=== PATIENT | female | born 1940 | race Caucasian/White ===

== ENCOUNTER 2017-07-12 01:47 | Day surgery (SDC) | payer MEDICARE ==
[2015-10-18 12:51] VITALS: Ht 157.5 cm
[~2017-07-12 01:47] MED LIST: AMOX-559 PO; ASPI-1017 PO; ASPI81TA94 PO; ATOR10TA24 PO; CA C1TAB10; DIPH-740 PO; DOCU-202 PO; DOCU-416 PO; ESCI5TAB10 PO; GLUC1TAB13 PO; GOLYTE PO; LEVO-85 PO; LEVO50TA86; LEVO75TA73 PO; LINA145C PO; LOR5/325 PO; LORA-1456 PO; MAGN250T34 PO; METH479P3 PO; NAPR220C11 PO; NAPR220T86 PO; OMEG500C7 PO; ONDA4TAB PO; ONDA4TAB97 PO; PANT40TA65 PO; POLY17PO25 PO; PRED20TA6 PO; PROM-110 PO; PROM12.556 PO; SULF-198 PO; SULF1TAB24 PO
[2017-07-12] MEDS ORDERED: OPHTHALMIC PROCEDURE 2 OS PRN ×2 (14:50)
[2017-07-12] MEDS ORDERED: OPHTHALMIC PROCEDURE 1 OS PRN (14:50)
[2017-07-12 15:10] VITALS: BP 159/82
[2017-07-12] MEDS ORDERED: MIDAZOLAM 2 MG/2 ML VIAL IVP ONE (15:30)
[2017-07-12] MEDS ORDERED: LIDOCAINE/SOD BICARB 8.4% SYR ID ONE (15:30)
[2017-07-12] MEDS ORDERED: NORMOSOL R SOLN(*) 1000 ML BAG 1,000 ML IV PRN (15:30)
[2017-07-12] MEDS ORDERED: acetaZOLAMIDE 500 MG CAPCR PO ONE (16:50)
[2017-07-12] MEDS ORDERED: TOBRAMYCIN 0.3% OP SOLN 5 ML OS ONE (17:28)
[2017-07-12 17:44] VITALS: BP 156/80
--- NOTE | 2017-07-12 19:33 | FOSTER LEFT EYE CATARACT ---
EVENT DATE: July 12, 2017 SURGEON: Edward Knight MD ANESTHESIOLOGIST: None. ANESTHESIA: Topical. PREOPERATIVE DIAGNOSIS Cataract, left eye. POSTOPERATIVE DIAGNOSIS Cataract, left eye. PROCEDURE Phacoemulsification of cataractous lens with implantation of an intraocular lens , left eye. DESCRIPTION OF PROCEDURE The risks and benefits and alternatives were carefully discussed with the patient, and preoperative consent was obtained. The patient was brought to the operating room after receiving topical anesthetic. The patient was prepped and draped using sterile technique in the usual manner. A stab incision was made, and the chamber was inflated with preservative-free lidocaine. DuoVisc was injected to inflate the chamber. A 2.2 mm blade was used to enter the anterior chamber. Utrata forceps were used to tear a circular capsulorrhexis. BSS was used to hydrodissect the nucleus. Phaco tip was introduced, and the nucleus was chopped into four quadrants. Each quadrant was removed. The I/A tip was used to remove the cortex. The bag was inflated with ProVisc. The intraocular lens was injected into the capsular bag. The I/A tip was used to remove the ProVisc. The wound was found to be watertight. Vigamox, Nevanac, and Maxitrol ointment were placed in the patient's eye. The patient's eye was patched, and the patient was taken to the recovery room in stable condition. The patient was examined in the recovery room and found to be stable prior to release from the hospital. RICK
== END 2017-07-12 18:15 | disposition home or self-care (01) ==
LOC: OR 01:47
PROVIDERS: ATTEND Ophthalmology
DX: H25.12 Age-related nuclear cataract, left eye (principal)
CPT/HCPCS: 66984; A9270; V2632

== ENCOUNTER 2017-09-06 00:47 | Day surgery (SDC) | payer MEDICARE ==
[2015-10-18 12:51] VITALS: Ht 157.5 cm; Wt 82.6 kg
[~2017-09-06] VITALS: Ht 157.5 cm; Wt 82.6 kg
[~2017-09-06 00:47] MED LIST changes: +ACET-1966 PO; +DIPH-464 PO
[2017-09-06] MEDS ORDERED: OPHTHALMIC PROCEDURE 1 OU PRN (06:00)
[2017-09-06] MEDS ORDERED: OPHTHALMIC PROCEDURE 2 OU PRN ×2 (06:00)
[2017-09-06] MEDS ORDERED: acetaZOLAMIDE 500 MG CAPCR PO ONE (06:00)
[2017-09-06 11:58] VITALS: BP 177/74
[2017-09-06] MEDS ORDERED: NORMOSOL R SOLN(*) 1000 ML BAG 1,000 ML IV PRN (12:00)
[2017-09-06] MEDS ORDERED: LIDOCAINE/SOD BICARB 8.4% SYR ID ONE (12:00)
[2017-09-06] MEDS ORDERED: SCOPOLAMINE 1.5 MG PATCH TD ONE (12:25)
[2017-09-06] MEDS ORDERED: PROPOFOL EMUL(*) 10MG/ML 20 ML 20 ML ONE (13:14)
[2017-09-06 13:35] VITALS: BP 129/81
--- NOTE | 2017-09-06 16:00 | FOSTER RIGHT EYE CATARACT ---
EVENT DATE: September 06, 2017 SURGEON: Edward Knight MD ANESTHESIA: Topical. PREOPERATIVE DIAGNOSIS Cataract, right eye. POSTOPERATIVE DIAGNOSIS Cataract, right eye. PROCEDURE Phacoemulsification of cataractous lens with implantation of an intraocular lens , right eye. DESCRIPTION OF PROCEDURE The risks and benefits and alternatives were carefully discussed with the patient, and preoperative consent was obtained. The patient was brought to the operating room after receiving topical anesthetic. The patient was prepped and draped using sterile technique in the usual manner. A stab incision was made, and the chamber was inflated with preservative-free lidocaine. DuoVisc was injected to inflate the chamber. A 2.2 mm blade was used to enter the anterior chamber. Utrata forceps were used to tear a circular capsulorrhexis. BSS was used to hydrodissect the nucleus. Phaco tip was introduced, and the nucleus was chopped into four quadrants. Each quadrant was removed. The I/A tip was used to remove the cortex. The bag was inflated with ProVisc. The intraocular lens was injected into the capsular bag. The I/A tip was used to remove the ProVisc. The wound was found to be watertight. Vigamox, Nevanac, and Maxitrol ointment were placed in the patient's eye. The patient's eye was patched, and the patient was taken to the recovery room in stable condition. The patient was examined in the recovery room and found to be stable prior to release from the hospital. RICK
== END 2017-09-06 13:51 | disposition home or self-care (01) ==
LOC: OR 00:47
PROVIDERS: ATTEND Ophthalmology
DX: H25.811 Combined forms of age-related cataract, right eye (principal)
CPT/HCPCS: 66984; A9270; J2704; V2632

== ENCOUNTER 2017-09-12 10:40 | Emergency (ER) | payer MEDICARE ==
[2015-10-18 12:51] VITALS: Wt 84.4 kg
--- NOTE | 2017-09-12 11:17 | ER Report ---
History and Physical Time Seen By MD: 11:00 Hx. of Stated Complaint: PT GOT A DEPOMEDROL SHOT YESTERDAY, SINCE LAST NIGTH FEELING FLUSHED, TACHYCARDIC, ANXIOUS, SEVERE HEADACHE HPI/ROS CHIEF COMPLAINT: Possible adverse medication reaction HISTORY OF PRESENT ILLNESS: Patient was seen 2 days ago by and had an injection to her right knee with Depo-Medrol. Since the injection she's been experiencing severe headache she is also feeling anxious and jittery. She denies any chest pain or shortness of breath. She was able to sleep last night but again woke up with headache this morning. Reports feeling palpitations and some nausea. Denies any abdominal pain. REVIEW OF SYSTEMS: Respiratory: No cough, no dyspnea. Cardiovascular: No chest pain, no palpitations. Gastrointestinal: No vomiting, no abdominal pain. Musculoskeletal: No back pain. Allergies: Coded Allergies: benzoin (Verified Allergy, Severe, SEVERE RASH, 08/29/17) ciprofloxacin (Verified Adverse Reaction, Mild, Anxiety and eyes itchy, 12/05/14) clavulanic acid (Verified Adverse Reaction, Mild, NAUSEA, 12/05/14) PT REPORTS HAVING TO GO TO THE ER FOR NAUSEA lisinopril (Verified Adverse Reaction, Mild, NAUSEA, 12/05/14) metronidazole (Verified Adverse Reaction, Mild, NAUSEA, 12/05/14) propoxyphene (Verified Adverse Reaction, Mild, NAUSEA, 12/05/14) tobramycin (Verified Adverse Reaction, Mild, NAUSEA, 08/29/17) Uncoded Allergies: DEPOMEDROL (Allergy, Mild, 09/12/17) Home Meds Reported Medications Diphenhydramine Hcl (DIPHENHYDRAMINE HCL) 25 Mg Capsule, 25 MG PO HS, CAPSULE 08/29/17 Acetaminophen (TYLENOL) 325 Mg Tablet, 325 MG PO BID, TAB 08/29/17 Magnesium Oxide (MAGNESIUM) 250 Mg Tablet, 250 MG PO QDAY 07/04/17 Glucosamine Hcl/Chondr Foreman A Na (OSTEO BI-FLEX CAPLET) 1 Each Tablet, 1 EACH PO QDAY 07/04/17 Polyethylene Glycol 3350 (MIRALAX) 17 Gm Powd.pack, 1 DOSE-PACK PO QDAY, PKT 02/10/16 Methylcellulose (CITRUCEL) 479 Gm Powder, 1 TBS PO QDAY 10/17/15 Levothyroxine Sodium (LEVOTHYROXINE SODIUM) 50 Mcg Tablet, 50, #90 12/05/14 Pantoprazole Sodium (PANTOPRAZOLE SODIUM) 40 Mg Tablet.dr, 40 MG PO QDAY, TAB.SR 09/15/13 Atorvastatin Calcium (LIPITOR) 10 Mg Tablet, 1 TAB PO QDAY, TAB TAKE ONE TABLET BY MOUTH ONCE A DAY AT BED TIME 09/10/13 Past Medical/Surgical History Past medical history for arthritis, hypertension, hypothyroidism, gastroesophageal reflux disease. Hx Smoking: No Smoking Status: Never Smoker Exposure to Second Hand Smoke?: No Hx Substance Use Disorder: No Hx Alcohol Use: No Constitutional Vital Sign - Last 24 Hours 09/12/17 09/12/17 09/12/17 09/12/17 10:40 10:46 10:46 10:55 Temp 98.4 Pulse ??? 135 118 Resp 16 B/P (MAP) 177/86 177/86 (116) Pulse Ox 93 93 09/12/17 09/12/17 09/12/17 09/12/17 11:10 11:25 11:34 11:40 Pulse 107 107 101 B/P (MAP) 168/87 (114) Pulse Ox 89 92 91 09/12/17 09/12/17 09/12/17 09/12/17 11:45 11:55 12:00 12:10 Pulse 96 99 B/P (MAP) 164/87 (112) 167/87 (113) Pulse Ox 94 92 09/12/17 09/12/17 09/12/17 09/12/17 12:15 12:25 12:30 12:35 Pulse 84 89 B/P (MAP) 169/84 (112) 158/80 (106) Pulse Ox 92 92 09/12/17 09/12/17 09/12/17 09/12/17 12:45 12:49 12:50 13:00 Pulse 91 B/P (MAP) 162/77 (105) 150/67 (94) Pulse Ox 91 O2 Flow Rate 1.0 09/12/17 09/12/17 09/12/17 09/12/17 13:05 13:15 13:20 13:30 Pulse ??? 80 B/P (MAP) 167/78 (107) 153/88 (109) Pulse Ox 94 5/02/2009/12/17 09/12/17 09/12/17 13:35 13:45 13:50 14:00 Pulse 71 67 B/P (MAP) 147/70 (95) 136/66 (89) Pulse Ox 94 93 09/12/17 09/12/17 09/12/17 09/12/17 14:05 14:15 14:20 14:23 Pulse 62 76 B/P (MAP) 108/54 (72) ???/??? (1665) Pulse Ox 92 93 Physical Exam General Appearance: The patient is alert, has no immediate need for airway protection and no current signs of toxicity. Eyes: Pupils equal and round no injection. Respiratory: Chest is non tender, lungs are clear to auscultation. Cardiac: regular rate and rhythm Gastrointestinal: Abdomen is soft and non tender, no masses, bowel sounds normal. Musculoskeletal: Neck: Neck is supple and non tender. Extremities have full range of motion and are non tender. Skin: No rashes or lesions. Medical Decision Making Data Points Result Diagram: 09/12/17 1118 09/12/17 1118 Laboratory Hematology Test 09/12/17 11:18 Red Blood Count 5.14 M/uL (4.17-5.56) Mean Corpuscular Volume 82.1 fL (80.0-96.0) Mean Corpuscular Hemoglobin 27.7 pg (26.0-33.0) Mean Corpuscular Hemoglobin Concent 33.7 g/dL (32.0-36.0) Red Cell Distribution Width 18.2 % (11.5-14.5) Mean Platelet Volume 7.1 fL (7.2-11.1) Neutrophils (%) (Auto) 92.7 % (39.4-72.5) Lymphocytes (%) (Auto) 3.4 % (17.6-49.6) Monocytes (%) (Auto) 3.6 % (4.1-12.4) Eosinophils (%) (Auto) 0.0 % (0.4-6.7) Basophils (%) (Auto) 0.3 % (0.3-1.4) Nucleated RBC Relative Count (auto) 0.1 /100WBC Neutrophils # (Auto) 15.8 K/uL (2.0-7.4) Lymphocytes # (Auto) 0.6 K/uL (1.3-3.6) Monocytes # (Auto) 0.6 K/uL (0.3-1.0) Eosinophils # (Auto) 0.0 K/uL (0.0-0.5) Basophils # (Auto) 0.1 K/uL (0.0-0.1) Nucleated RBC Absolute Count (auto) 0.01 K/uL Sodium Level 140 mmol/L (137-145) Potassium Level 3.7 mmol/L (3.5-5.0) Chloride Level 106 mmol/L (98-107) Carbon Dioxide Level 21 mmol/L (22-31) Blood Urea Nitrogen 23 mg/dl (7-18) Creatinine 0.70 mg/dl (0.52-1.04) Glomerular Filtration Rate Calc > 60.0 Random Glucose 136 mg/dl (75-110) Calcium Level 9.8 mg/dl (8.4-10.2) Total Bilirubin 0.6 mg/dl (0.2-1.3) Aspartate Amino Transf (AST/SGOT) 23 U/L (0-35) Alanine Aminotransferase (ALT/SGPT) 27 U/L (0-56) Alkaline Phosphatase 93 U/L (0-126) Total Protein 7.5 gm/dl (6.3-8.2) Albumin 4.1 g/dl (3.5-5.0) Chemistry Test 09/12/17 11:18 White Blood Count 17.0 k/uL (4.5-11.0) Red Blood Count 5.14 M/uL (4.17-5.56) Hemoglobin 14.2 g/dL (12.0-16.0) Hematocrit 42.1 % (34.0-47.0) Mean Corpuscular Volume 82.1 fL (80.0-96.0) Mean Corpuscular Hemoglobin 27.7 pg (26.0-33.0) Mean Corpuscular Hemoglobin Concent 33.7 g/dL (32.0-36.0) Red Cell Distribution Width 18.2 % (11.5-14.5) Platelet Count 276 K/uL (150-450) Mean Platelet Volume 7.1 fL (7.2-11.1) Neutrophils (%) (Auto) 92.7 % (39.4-72.5) Lymphocytes (%) (Auto) 3.4 % (17.6-49.6) Monocytes (%) (Auto) 3.6 % (4.1-12.4) Eosinophils (%) (Auto) 0.0 % (0.4-6.7) Basophils (%) (Auto) 0.3 % (0.3-1.4) Nucleated RBC Relative Count (auto) 0.1 /100WBC Neutrophils # (Auto) 15.8 K/uL (2.0-7.4) Lymphocytes # (Auto) 0.6 K/uL (1.3-3.6) Monocytes # (Auto) 0.6 K/uL (0.3-1.0) Eosinophils # (Auto) 0.0 K/uL (0.0-0.5) Basophils # (Auto) 0.1 K/uL (0.0-0.1) Nucleated RBC Absolute Count (auto) 0.01 K/uL Glomerular Filtration Rate Calc > 60.0 Calcium Level 9.8 mg/dl (8.4-10.2) Total Bilirubin 0.6 mg/dl (0.2-1.3) Aspartate Amino Transf (AST/SGOT) 23 U/L (0-35) Alanine Aminotransferase (ALT/SGPT) 27 U/L (0-56) Alkaline Phosphatase 93 U/L (0-126) Total Protein 7.5 gm/dl (6.3-8.2) Albumin 4.1 g/dl (3.5-5.0) EKG/Imaging EKG Interpretation EKG shows sinus tachycardia with ventricular rate of [address] segment or T-wave abnormalities. 09/12/2017 2:18:22 pm Cardec monitor at this time shows improvement in vital signs heart rate now in the normal range at 82 bpm sinus rhythm on the monitor. Monitor Interpretation: Sinus Tachycardia Imaging FACILITY: [facility] PATIENT NAME: Dalia Layton : 1940 MR: [id number] V: [id number] EXAM DATE: ORDERING PHYSICIAN: MELANI DURAN TECHNOLOGIST: Location: [facility] Patient: Dalia Layton : 1940 Visit/Account:[id number] Date of Sevice: 09/12/2017 EXAMINATION: CT head without IV contrast HISTORY: Headache. COMPARISON: Brain MRI from 11/22/2008. TECHNIQUE: Contiguous axial images were obtained from the skull base to the vertex without intravenous contrast. Sagittal and coronal reformatted images are also submitted. One of the following dose optimization techniques was utilized in the performance of this exam: Automated exposure control; adjustment of the mA and/ or kV according to the patient's size; or use of an iterative reconstruction technique. Specific details can be referenced in the facility's radiology CT exam operational policy. FINDINGS: Brain volume: Normal. Ventricles: Normal. Acute ischemic changes: None. Hemorrhage: No acute intracranial hemorrhage. Masses/edema: There is a 1.1 cm fat density lesion in the right posterior fossa , lateral to the brainstem, unchanged. No edema in the adjacent brain. [place]-white: Negative. White matter: Normal. Vessels: Calcified plaque of both carotid siphons. Extra-axial: Negative. Calvarium/scalp: Negative. Skull base/visualized face: Negative. Visualized sinuses/orbits: Previous lens surgery bilaterally. IMPRESSION: 1. No acute hemorrhage or CT evidence of acute infarct. 2. 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 No other intracranial mass lesion. Report Dictated By: Aurora Lang MD at 09/12/2017 1:20 PM Report E-Signed By: Aurora Lang MD at 09/12/2017 1:25 PM WSN:[id number] ED Course/Re-evaluation ED Course 09/12/2017 11:16:45 am patient with possible adverse reaction to Depo-Medrol injection plan at this time will be to check basic lab work. We will give IV fluids and dose of Ativan along with EKG. 09/12/2017 2:17:46 pm headache and upset stomach and resolved. Workup in the emergency department is unremarkable. We'll discharge the patient home at this time. Decision to Disposition Date: September 12, 2017 Decision to Disposition Time: 14:18 Depart Departure Latest Vital Signs Vital Signs Date Time Temp Pulse Resp B/P (MAP) Pulse Ox O2 Delivery O2 Flow Rate FiO2 09/12/17 14:23 ???/??? (1665) 09/12/17 14:20 76 93 09/12/17 12:49 1.0 09/12/17 10:46 98.4 16 Impression: Primary Impression: Adverse drug effect Condition: Improved Disposition: HOME OR SELF-CARE Patient Instructions: Adverse Drug Reaction (ED) Additional Instructions: Take all your prescribed medications as directed. Follow-up with your primary care provider on a routine basis or sooner if your symptoms worsen or persist. Problem Qualifiers Primary Impression: Adverse drug effect Encounter type: initial encounter Qualified Codes: T88.7XXA - Unspecified adverse effect of drug or medicament, initial encounter MELANI DURAN MD September 12, 2017 11:16
[2017-09-12] MEDS ORDERED: LORazepam 2 MG/ML VIAL IVP ONE (11:20)
[2017-09-12] MEDS ORDERED: NS(*) 0.9% 500 ML BAG 500 ML IV ONE (11:20)
[2017-09-12 11:41] LABS: PLATELET COUNT, AUTOMATED 276 K/uL (150-450)
[2017-09-12] MEDS ORDERED: ONDANSETRON 4 MG/2 ML VIAL IVP ONE (12:05)
[2017-09-12] MEDS ORDERED: KETOROLAC 15 MG/ML VIAL IVP ONE (12:05)
[2017-09-12] MEDS ORDERED: FAMOTIDINE(*) 20MG/50ML PREMIX 50 ML IVPB ONE (12:20)
--- NOTE | 2017-09-12 13:29 | RADIOLOGY IMAGING REPORT ---
FACILITY: [facility] PATIENT NAME: Dalia Layton : 1940 MR: [id number] V: [id number] EXAM DATE: ORDERING PHYSICIAN: MELANI DURAN TECHNOLOGIST: Location: [facility] [place] Patient: Dalia Layton : 1940 Visit/Account:[id number] Date of Sevice: 09/12/2017 EXAMINATION: CT head without IV contrast HISTORY: Headache. COMPARISON: Brain MRI from 11/22/2008. TECHNIQUE: Contiguous axial images were obtained from the skull base to the vertex without intraven ous contrast. Sagittal and coronal reformatted images are also submitted. One of the following dose optimization techniques was utilized in the performance of this exam: Autom ated exposure control; adjustment of the mA and/or kV according to the patient's size; or use of an i terative reconstruction technique. Specific details can be referenced in the facility's radiology C T exam operational policy. FINDINGS: Brain volume: Normal. Ventricles: Normal. Acute ischemic changes: None. Hemorrhage: No acute intracranial hemorrhage. Masses/edema: There is a 1.1 cm fat density lesion in the right posterior fossa, lateral to the brai nstem, unchanged. No edema in the adjacent brain. [place]-white: Negative. White matter: Normal. Vessels: Calcified plaque of both carotid siphons. Extra-axial: Negative. Calvarium/scalp: Negative. Skull base/visualized face: Negative. Visualized sinuses/orbits: Previous lens surgery bilaterally. IMPRESSION: 1. No acute hemorrhage or CT evidence of acute infarct. 2. 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 No other intracranial mass lesion. Report Dictated By: Aurora Lang MD at 09/12/2017 1:20 PM Report E-Signed By: Aurora Lang MD at 09/12/2017 1:25 PM WSN:[id number]
--- NOTE | 2017-09-12 16:01 | EKG ---
FACILITY: [facility] PATIENT NAME: CHANTEL VITAL : [id number] MR: [id number] V: [id number] EXAM DATE: ORDERING PHYSICIAN: MELANI DURAN TECHNOLOGIST: J LUIS Ruiz Reason : REACTION DRUG Blood Pressure : / mmHG Vent. Rate : 108 BPM Atrial Rate : 108 BPM P-R Int : 146 ms QRS Dur : 084 ms QT Int : 328 ms P-R-T Axes : 057 015 053 degrees QTc Int : 439 ms Sinus tachycardia Otherwise normal ECG No previous ECGs available Confirmed by JACKELYN OVALLE ([id number]) on 09/13/2017 11:22:27 AM Referred By: RENEE Confirmed By:JACKELYN OVALLE
== END 2017-09-12 14:30 | disposition home or self-care (01) ==
LOC: ER 10:55
DX: T88.7XXA Unspecified adverse effect of drug or medicament, initial encounter (principal)
CPT/HCPCS: 70450; 85025; 93005; 96361; 96365; 96375; 99284; J1885; J2060; J2405; J3490; J7040; 82040; 82247; 82310; 82374; 82435; 82565; 82947; 84075; 84132; 84155; 84295; 84450; 84460; 84520

== ENCOUNTER 2017-09-14 11:10 | Emergency (ER) | payer MEDICARE ==
[2015-10-18 12:51] VITALS: Wt 84.4 kg
--- NOTE | 2017-09-14 11:21 | ER Report ---
History and Physical Time Seen By MD: 11:21 Hx. of Stated Complaint: PT PRESENTS WITH A MYRIAD OF SYMPTOMS. IT SEEMS H MAIN COMPLAINT IS PAIN IN HER L EYE . HAD CATARACT REMOVED IN JULY AND THE RIGHT EYE DONW LAST WEEK. WAS SEEN HERE A FEW DAYS AGO, AND WAS ALSO SEEN BY OPHTHALMOLGY AND EYE WAS CLEARED. PT ALSO C/O NAUSEA AND INTERMITANT TACHYCARDIA HPI/ROS CHIEF COMPLAINT: Left eye pain, feeling antsy HISTORY OF PRESENT ILLNESS: 77-year-old female patient presents to emergency room with complaint of left eye pain and feeling antsy. Patient states that she had a injection in her knee couple of days ago. She states that she was doing fine until later that evening when she developed significant headache. She states that she did come in the emergency room for evaluation. She states that everything was checked and she was discharged. States she felt better when she was discharged and felt better when she was at home the day after. She states that she developed left eye pain early this morning. She states that she call and see her eye doctor this morning. She was told that everything looked fine but that she had some white blood cells in her eye. She was instructed to use the prednisolone eyedrops in the left eye as well as right eye. She states that she is just feeling worse. She states she is feeling very uneasy. Patient denies having any fevers, chills, nausea, vomiting or diarrhea. Patient is not taking any medication for this. REVIEW OF SYSTEMS: Respiratory: No cough, no dyspnea. Cardiovascular: No chest pain, no palpitations. Gastrointestinal: No vomiting, no abdominal pain. Musculoskeletal: No back pain. Allergies: Coded Allergies: benzoin (Verified Allergy, Severe, SEVERE RASH, 08/29/17) ciprofloxacin (Verified Adverse Reaction, Mild, Anxiety and eyes itchy, 12/05/14) clavulanic acid (Verified Adverse Reaction, Mild, NAUSEA, 12/05/14) PT REPORTS HAVING TO GO TO THE ER FOR NAUSEA lisinopril (Verified Adverse Reaction, Mild, NAUSEA, 12/05/14) metronidazole (Verified Adverse Reaction, Mild, NAUSEA, 12/05/14) propoxyphene (Verified Adverse Reaction, Mild, NAUSEA, 12/05/14) tobramycin (Verified Adverse Reaction, Mild, NAUSEA, 08/29/17) Uncoded Allergies: DEPOMEDROL (Allergy, Mild, 09/12/17) Home Meds Active Scripts Ondansetron (ZOFRAN ODT) 4 Mg Tab.rapdis, 4 MG PO Q6H Y for NAUSEA/VOMITING, # 20 TAB.LEATHA Prov:JESUS CLINTON [facility] 09/14/17 Lorazepam (ATIVAN) 0.5 Mg Tablet, 0.5 MG PO Q4-6H Y for ANXIETY, #10 TAB Prov:JESUS CLINTON [facility] 09/14/17 Reported Medications Diphenhydramine Hcl (DIPHENHYDRAMINE HCL) 25 Mg Capsule, 25 MG PO HS, CAPSULE 08/29/17 Acetaminophen (TYLENOL) 325 Mg Tablet, 325 MG PO BID, TAB 08/29/17 Magnesium Oxide (MAGNESIUM) 250 Mg Tablet, 250 MG PO QDAY 07/04/17 Glucosamine Hcl/Chondr Foreman A Na (OSTEO BI-FLEX CAPLET) 1 Each Tablet, 1 EACH PO QDAY 07/04/17 Polyethylene Glycol 3350 (MIRALAX) 17 Gm Powd.pack, 1 DOSE-PACK PO QDAY, PKT 02/10/16 Methylcellulose (CITRUCEL) 479 Gm Powder, 1 TBS PO QDAY 10/17/15 Levothyroxine Sodium (LEVOTHYROXINE SODIUM) 50 Mcg Tablet, 50, #90 12/05/14 Pantoprazole Sodium (PANTOPRAZOLE SODIUM) 40 Mg Tablet.dr, 40 MG PO QDAY, TAB.SR 09/15/13 Atorvastatin Calcium (LIPITOR) 10 Mg Tablet, 1 TAB PO QDAY, TAB TAKE ONE TABLET BY MOUTH ONCE A DAY AT BED TIME 09/10/13 Past Medical/Surgical History Patient has a 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 Patient has surgical history of hysterectomy, appendectomy, right knee surgery, left shoulder surgery, bladder tumor removed, cataract surgery 2, tonsillectomy. Reviewed Nurses Notes: Yes Hx Smoking: No Smoking Status: Never Smoker Exposure to Second Hand Smoke?: No Hx Substance Use Disorder: No Hx Alcohol Use: No Constitutional Vital Sign - Last 24 Hours 09/14/17 09/14/17 09/14/17 09/14/17 11:16 11:17 11:30 11:40 Temp 98.2 Pulse 101 80 Resp 22 B/P (MAP) 194/96 194/96 (128) 175/76 (109) Pulse Ox 83 94 O2 Delivery Room Air 09/14/17 09/14/17 09/14/17 09/14/17 11:45 12:00 12:15 12:30 Pulse 75 78 B/P (MAP) 168/81 (110) 158/84 (108) Pulse Ox 93 89 09/14/17 09/14/17 09/14/17 09/14/17 12:45 13:07 13:15 13:30 Pulse 81 69 B/P (MAP) 156/71 (99) 160/86 (110) Pulse Ox 94 94 09/14/17 09/14/17 09/14/17 13:35 14:00 14:05 Pulse 86 78 B/P (MAP) 155/74 (101) Pulse Ox 94 95 Intake and Output 09/14/17 09/14/17 09/15/17 14:59 22:59 06:59 Intake Total 400 ml Balance 400 ml Physical Exam General Appearance: The patient is alert, has no immediate need for airway protection and no current signs of toxicity. Eyes: Pupils equal and round no injection. Extraocular movements intact. Respiratory: Chest is non tender, lungs are clear to auscultation. Cardiac: regular rate and rhythm Gastrointestinal: Abdomen is soft and non tender, no masses, bowel sounds normal. Musculoskeletal: Neck: Neck is supple and non tender. Extremities have full range of motion and are non tender. Skin: No rashes or lesions. DIFFERENTIAL DIAGNOSIS: After history and physical exam differential diagnosis was considered for adverse medication reaction, migraine, tachycardia, anxiety. Medical Decision Making Data Points Result Diagram: 09/14/17 1248 09/14/17 1248 Laboratory Hematology Test 09/14/17 12:48 Red Blood Count 5.03 M/uL (4.17-5.56) Mean Corpuscular Volume 82.8 fL (80.0-96.0) Mean Corpuscular Hemoglobin 28.2 pg (26.0-33.0) Mean Corpuscular Hemoglobin Concent 34.0 g/dL (32.0-36.0) Red Cell Distribution Width 18.1 % (11.5-14.5) Mean Platelet Volume 7.1 fL (7.2-11.1) Neutrophils (%) (Auto) 77.5 % (39.4-72.5) Lymphocytes (%) (Auto) 13.7 % (17.6-49.6) Monocytes (%) (Auto) 8.4 % (4.1-12.4) Eosinophils (%) (Auto) 0.1 % (0.4-6.7) Basophils (%) (Auto) 0.3 % (0.3-1.4) Nucleated RBC Relative Count (auto) 0.1 /100WBC Neutrophils # (Auto) 5.4 K/uL (2.0-7.4) Lymphocytes # (Auto) 1.0 K/uL (1.3-3.6) Monocytes # (Auto) 0.6 K/uL (0.3-1.0) Eosinophils # (Auto) 0.0 K/uL (0.0-0.5) Basophils # (Auto) 0.0 K/uL (0.0-0.1) Nucleated RBC Absolute Count (auto) 0.01 K/uL Sodium Level 140 mmol/L (137-145) Potassium Level 4.1 mmol/L (3.5-5.0) Chloride Level 102 mmol/L (98-107) Carbon Dioxide Level 28 mmol/L (22-31) Blood Urea Nitrogen 20 mg/dl (7-18) Creatinine 0.70 mg/dl (0.52-1.04) Glomerular Filtration Rate Calc > 60.0 Random Glucose 94 mg/dl (75-110) Calcium Level 9.1 mg/dl (8.4-10.2) Total Bilirubin 0.5 mg/dl (0.2-1.3) Aspartate Amino Transf (AST/SGOT) 30 U/L (0-35) Alanine Aminotransferase (ALT/SGPT) 40 U/L (0-56) Alkaline Phosphatase 82 U/L (0-126) Troponin I < 0.012 ng/ml Total Protein 7.0 gm/dl (6.3-8.2) Albumin 3.8 g/dl (3.5-5.0) Chemistry Test 09/14/17 12:48 White Blood Count 7.0 k/uL (4.5-11.0) Red Blood Count 5.03 M/uL (4.17-5.56) Hemoglobin 14.2 g/dL (12.0-16.0) Hematocrit 41.6 % (34.0-47.0) Mean Corpuscular Volume 82.8 fL (80.0-96.0) Mean Corpuscular Hemoglobin 28.2 pg (26.0-33.0) Mean Corpuscular Hemoglobin Concent 34.0 g/dL (32.0-36.0) Red Cell Distribution Width 18.1 % (11.5-14.5) Platelet Count 268 K/uL (150-450) Mean Platelet Volume 7.1 fL (7.2-11.1) Neutrophils (%) (Auto) 77.5 % (39.4-72.5) Lymphocytes (%) (Auto) 13.7 % (17.6-49.6) Monocytes (%) (Auto) 8.4 % (4.1-12.4) Eosinophils (%) (Auto) 0.1 % (0.4-6.7) Basophils (%) (Auto) 0.3 % (0.3-1.4) Nucleated RBC Relative Count (auto) 0.1 /100WBC Neutrophils # (Auto) 5.4 K/uL (2.0-7.4) Lymphocytes # (Auto) 1.0 K/uL (1.3-3.6) Monocytes # (Auto) 0.6 K/uL (0.3-1.0) Eosinophils # (Auto) 0.0 K/uL (0.0-0.5) Basophils # (Auto) 0.0 K/uL (0.0-0.1) Nucleated RBC Absolute Count (auto) 0.01 K/uL Glomerular Filtration Rate Calc > 60.0 Calcium Level 9.1 mg/dl (8.4-10.2) Total Bilirubin 0.5 mg/dl (0.2-1.3) Aspartate Amino Transf (AST/SGOT) 30 U/L (0-35) Alanine Aminotransferase (ALT/SGPT) 40 U/L (0-56) Alkaline Phosphatase 82 U/L (0-126) Troponin I < 0.012 ng/ml Total Protein 7.0 gm/dl (6.3-8.2) Albumin 3.8 g/dl (3.5-5.0) EKG/Imaging EKG Interpretation 12 lead EKG: Rhythm: normal sinus rhythm with a ventricular rate of 75 bpm [place]: normal QRS: normal ST segments: normal Imaging CHEST PA AND LAT HISTORY: Chest pressure COMPARISON: 09/13/2013 FINDINGS: Cardiomediastinal contours: Normal Lungs and pleura: Normal Bones/soft tissues: Normal Other findings: Small hiatal hernia. IMPRESSION: 1. No acute cardiopulmonary disease. 2. Small hiatal hernia. Report Dictated By: Vijay Wood MD at 09/14/2017 1:05 PM Report E-Signed By: Vijay Wood MD at 09/14/2017 1:06 PM ED Course/Re-evaluation ED Course Patient is admitted from exam room, history and physical were obtained. Differential diagnoses were considered. On examination lungs are clear, heart is regular, abdomen soft nontender. Patient states all I was examining her that she just feels as if she is very antsy, like she is unable to sit still. I did review her previous visit from 2 days ago. Patient did improve with Ativan as well as fluid. I believe that patient is likely having some anxiety which is fueled by the steroid injection in her knee. I discussed this with the patient. We will go ahead and treat the patient with Ativan 0.5 mg. During that time the patient's heart slowed down from 100 bpm to 75 and her blood pressure decreased from 190/92 to 170/80. I went and reevaluated the patient. Patient states this time she feels like she has a knot in her chest. She states she's had this before with her anxiety. I discussed with patient this could be something more significant and recommended getting some lab tests done. She agreed. A CBC, CMP , EKG, troponin were done. EKG was unremarkable, troponin was negative and labs were also unremarkable, except patient did have a slightly elevated BUN. I discussed this with the patient. We did treat her with 500 cc of normal saline. I believe that she is likely having some anxiety. We continue to watch her and she did feel better. We will go ahead and discharge patient home at this time. We will go ahead and give her a prescription for Ativan. She is to follow-up with her primary care provider in the next week. Patient is return to emergency room if condition worsens. Patient verbalized understanding and agreement with plan. Decision to Disposition Date: September 14, 2017 Decision to Disposition Time: 13:40 Depart Departure Latest Vital Signs Vital Signs Date Time Temp Pulse Resp B/P (MAP) Pulse Ox O2 Delivery O2 Flow Rate FiO2 09/14/17 14:05 78 95 09/14/17 14:00 155/74 (101) 09/14/17 11:16 98.2 22 Room Air Impression: Primary Impression: Adverse drug effect Condition: Improved Disposition: HOME OR SELF-CARE New Scripts Ondansetron (ZOFRAN ODT) 4 Mg Tab.rapdis 4 MG PO Q6H Y for NAUSEA/VOMITING, #20 TAB.LEATHA Prov: JESUS CLINTON 09/14/17 Lorazepam (ATIVAN) 0.5 Mg Tablet 0.5 MG PO Q4-6H Y for ANXIETY, #10 TAB Prov: JESUS CLINTON 09/14/17 Patient Instructions: Adverse Drug Reaction (ED) Additional Instructions: Increase fluid intake. Get plenty of rest. Follow up with your primary care provider in the next week. Return to the ER if condition worsens. Take the Ativan as needed for feeling like your heart is racing or your blood pressure is elevated. Continue with the normal medications. Problem Qualifiers Primary Impression: Adverse drug effect Encounter type: initial encounter Qualified Codes: T88.7XXA - Unspecified adverse effect of drug or medicament, initial encounter JESUS CLINTON September 14, 2017 11:21
[2017-09-14] MEDS ORDERED: LORazepam 0.5 MG TAB PO ONE (11:35)
--- NOTE | 2017-09-14 12:20 | EKG ---
FACILITY: PATIENT NAME: CHANTEL VITAL : [id number] MR: [id number] V: [id number] EXAM DATE: ORDERING PHYSICIAN: JESUS CLINTON TECHNOLOGIST: J LUIS Ruiz Reason : TACHY FEELING Blood Pressure : / mmHG Vent. Rate : 075 BPM Atrial Rate : 075 BPM P-R Int : 126 ms QRS Dur : 086 ms QT Int : 384 ms P-R-T Axes : 035 012 020 degrees QTc Int : 428 ms Sinus rhythm Borderline left axis No acute appearing ST-T findings No previous ECGs available Confirmed by AZALIA LUNA ([id number] on 09/16/2017 10:57:44 AM Referred By: MARY BETH Confirmed By:AZALIA LUNA
--- NOTE | 2017-09-14 13:10 | RADIOLOGY IMAGING REPORT ---
FACILITY: [facility] PATIENT NAME: Dalia Layton : 1940 MR: [id number] V: [id number] EXAM DATE: ORDERING PHYSICIAN: JESUS CLINTON TECHNOLOGIST: Location: [facility] [place] Patient: Dalia Layton : 1940 Visit/Account:[id number] Date of Sevice: 09/14/2017 CHEST PA AND LAT HISTORY: Chest pressure COMPARISON: 09/13/2013 FINDINGS: Cardiomediastinal contours: Normal Lungs and pleura: Normal Bones/soft tissues: Normal Other findings: Small hiatal hernia. IMPRESSION: 1. No acute cardiopulmonary disease. 2. Small hiatal hernia. Report Dictated By: Vijay Wood MD at 09/14/2017 1:05 PM Report E-Signed By: Vijay Wood MD at 09/14/2017 1:06 PM [id number]
[2017-09-14 13:15] LABS: PLATELET COUNT, AUTOMATED 268 K/uL (150-450)
[2017-09-14] MEDS ORDERED: NS(*) 0.9% 500 ML BAG 500 ML IV ONE (13:25)
[2017-09-14] MEDS ORDERED: ONDA4TAB PO (13:41)
[2017-09-14] MEDS ORDERED: LORA-1455 PO (13:41)
[2017-09-14] MEDS ORDERED: ONDANSETRON 4 MG ODT TABDP SL ONE (13:45)
[2017-09-14 14:00] VITALS: BP 155/74
== END 2017-09-14 14:18 | disposition home or self-care (01) ==
LOC: ER 11:15
DX: T88.7XXA Unspecified adverse effect of drug or medicament, initial encounter (principal); K44.9 Diaphragmatic hernia without obstruction or gangrene
CPT/HCPCS: 71046; 84484; 85025; 93005; 96360; 99284; A9270; J7040; Q0162; 82040; 82247; 82310; 82374; 82435; 82565; 82947; 84075; 84132; 84155; 84295; 84450; 84460; 84520; S0119

== ENCOUNTER 2017-09-19 01:55 | Emergency (ER) | payer MEDICARE ==
[2015-10-18 12:51] VITALS: Wt 84.4 kg
[~2017-09-19 01:55] MED LIST changes: +LORA-1455 PO
--- NOTE | 2017-09-19 01:57 | ER Report ---
History and Physical Time Seen By MD: 01:57 HPI/ROS CHIEF COMPLAINT: arm weakness HISTORY OF PRESENT ILLNESS: This is a 77 year old female. She is having some arm weakness in the left arm. This started at about 0045 tonight (about 90 minutes ago) and has not changed. She has some vague tingling in the arm as well. She says the weakness is more of a heaviness in the arm. She has no chest pain or shortness of breath. Has not had this happen in the past. No other weakness. No trouble with speech or swallowing. She gives a history of having some eye pain and feeling very anxious and abnormal after having a steroid injection in her knee recently. And has been evaluated in the emergency department twice because of this. Evaluations have been negative. REVIEW OF SYSTEMS: Constitutional: No fever or chills. Eyes: No vision changes. ENT: No sore throat. No congestion. Cardiovascular: No chest pain. No palpitations. Respiratory: No cough. No shortness of breath. Gastrointestinal: No abdominal pain. No nausea or vomiting. No problems with bowels. Genitourinary: No dysuria or frequency Musculoskeletal: No back pain. Skin: No rashes. Neurological: No headache. Allergies: Coded Allergies: benzoin (Verified Allergy, Severe, SEVERE RASH, 09/19/17) ciprofloxacin (Verified Adverse Reaction, Mild, Anxiety and eyes itchy, ) clavulanic acid (Verified Adverse Reaction, Mild, NAUSEA, 09/19/17) PT REPORTS HAVING TO GO TO THE ER FOR NAUSEA lisinopril (Verified Adverse Reaction, Mild, NAUSEA, 09/19/17) metronidazole (Verified Adverse Reaction, Mild, NAUSEA, 09/19/17) propoxyphene (Verified Adverse Reaction, Mild, NAUSEA, 09/19/17) tobramycin (Verified Adverse Reaction, Mild, NAUSEA, 09/19/17) Uncoded Allergies: DEPOMEDROL (Allergy, Mild, 09/12/17) Home Meds Active Scripts Ondansetron (ZOFRAN ODT) 4 Mg Tab.rapdis, 4 MG PO Q6H Y for NAUSEA/VOMITING, # 20 TAB.LEATHA Prov:JESUS CLINTON [employer] 09/14/17 Lorazepam (ATIVAN) 0.5 Mg Tablet, 0.5 MG PO Q4-6H Y for ANXIETY, #10 TAB Prov:JESUS CLINTON [employer] 09/14/17 Reported Medications Diphenhydramine Hcl (DIPHENHYDRAMINE HCL) 25 Mg Capsule, 25 MG PO HS, CAPSULE 08/29/17 Acetaminophen (TYLENOL) 325 Mg Tablet, 325 MG PO BID, TAB 08/29/17 Magnesium Oxide (MAGNESIUM) 250 Mg Tablet, 250 MG PO QDAY 07/04/17 Glucosamine Hcl/Chondr Foreman A Na (OSTEO BI-FLEX CAPLET) 1 Each Tablet, 1 EACH PO QDAY 07/04/17 Polyethylene Glycol 3350 (MIRALAX) 17 Gm Powd.pack, 1 DOSE-PACK PO QDAY, PKT 02/10/16 Methylcellulose (CITRUCEL) 479 Gm Powder, 1 TBS PO QDAY 10/17/15 Levothyroxine Sodium (LEVOTHYROXINE SODIUM) 50 Mcg Tablet, 50, #90 12/05/14 Pantoprazole Sodium (PANTOPRAZOLE SODIUM) 40 Mg Tablet.dr, 40 MG PO QDAY, TAB.SR 09/15/13 Atorvastatin Calcium (LIPITOR) 10 Mg Tablet, 1 TAB PO QDAY, TAB TAKE ONE TABLET BY MOUTH ONCE A DAY AT BED TIME 09/10/13 Reviewed Nurses Notes: Yes Hx Smoking: No Smoking Status: Never Smoker Exposure to Second Hand Smoke?: No Hx Substance Use Disorder: No Hx Alcohol Use: No Constitutional Vital Sign - Last 24 Hours 09/19/17 09/19/17 09/19/17 09/19/17 01:59 01:59 02:55 03:05 Temp 97.5 Pulse 115 76 Resp 18 B/P (MAP) 149/67 149/67 (94) 136/36 (69) Pulse Ox 88 97 O2 Delivery Room Air 09/19/17 09/19/17 09/19/17 09/19/17 03:25 03:30 03:55 04:00 Pulse 76 ??? B/P (MAP) 132/73 (92) ???/??? (1665) Pulse Ox 95 09/19/17 09/19/17 09/19/17 09/19/17 04:25 04:27 04:30 04:55 Pulse 79 82 Resp 15 B/P (MAP) 140/63 (88) 143/69 (93) Pulse Ox 95 93 09/19/17 09/19/17 09/19/17/17/18 05:00 05:25 05:30 05:35 Pulse 66 70 Resp 10 10 B/P (MAP) 100/76 (84) 117/68 (84) Pulse Ox 94 96 09/19/17 09/19/17 09/19/17 06:00 06:05 06:10 Pulse 69 78 Resp 15 8 B/P (MAP) 114/60 (78) Pulse Ox 94 97 Physical Exam General Appearance: The patient is alert. No acute distress. Non-toxic in appearance. Eyes: Pupils are equal, round. Reactive to light. No pallor, injection or icterus. Extraocular movements are intact. No nystagmus. Normal visual zaragoza. ENT: Mucous membranes are moist. Normal oral mucosa. Posterior oropharynx is normal. Normal tympanic membranes and canals. Neck: Supple and non tender. No lymphadenopathy. Respiratory: Lungs are clear to auscultation. There are no retractions or accessory muscle use. Cardiovascular: Regular rate and rhythm. No murmurs, gallops or rubs. Normal capillary refill. No edema. No carotid bruits. Gastrointestinal: Abdomen is soft and non tender. Nondistended. Normal active bowel sounds. No costovertebral angle tenderness with percussion. Neurological: Alert and oriented x3. Cranial nerves with eye exam as noted above. Midline tongue, symmetric palate elevation, normal facial sensation and normal face motor. She has equal strength without deficits in lower and upper extremities. She has normal sensation in the upper and lower extremities to touch and pin-prick. She has normal reflexes which are equal bilaterally upper and lower. She has normal finger to nose and heel to michel. NIH stroke scale with score of Zero. Skin: Warm and dry. Musculoskeletal: Extremities are nontender. Full range of motion. No tenderness in palpation of the cervical, thoracic and lumbar spine. DIFFERENTIAL DIAGNOSIS: After history and physical exam, differential diagnosis was considered for feeling of weakness in the left arm with a little bit of paresthesia as well. Nonspecific and no real focal changes noted on exam. We will go ahead and get a head CT scan and labs that we would do looking for stroke. Also consider acute coronary event is a possibility. Based on recent visits here in the ER, this could also be anxiety related Medical Decision Making Data Points Result Diagram: 09/19/17 0205 09/19/17 0205 Laboratory Hematology Test 09/19/17 02:05 09/19/17 05:12 Red Blood Count 5.37 M/uL (4.17-5.56) Mean Corpuscular Volume 82.6 fL (80.0-96.0) Mean Corpuscular Hemoglobin 27.9 pg (26.0-33.0) Mean Corpuscular Hemoglobin Concent 33.7 g/dL (32.0-36.0) Red Cell Distribution Width 18.3 % (11.5-14.5) Mean Platelet Volume 6.7 fL (7.2-11.1) Neutrophils (%) (Auto) 73.0 % (39.4-72.5) Lymphocytes (%) (Auto) 15.9 % (17.6-49.6) Monocytes (%) (Auto) 8.8 % (4.1-12.4) Eosinophils (%) (Auto) 1.3 % (0.4-6.7) Basophils (%) (Auto) 1.0 % (0.3-1.4) Nucleated RBC Relative Count (auto) 0.0 /100WBC Neutrophils # (Auto) 7.5 K/uL (2.0-7.4) Lymphocytes # (Auto) 1.6 K/uL (1.3-3.6) Monocytes # (Auto) 0.9 K/uL (0.3-1.0) Eosinophils # (Auto) 0.1 K/uL (0.0-0.5) Basophils # (Auto) 0.1 K/uL (0.0-0.1) Nucleated RBC Absolute Count (auto) 0.00 K/uL Peripheral Blood Smear No Y/N Prothrombin Time 12.8 seconds (12.0-14.4) Prothromb Time International Ratio 0.97 Activated Partial Thromboplast Time 26 seconds (23-35) Sodium Level 140 mmol/L (137-145) Potassium Level 3.7 mmol/L (3.5-5.0) Chloride Level 99 mmol/L (98-107) Carbon Dioxide Level 29 mmol/L (22-31) Blood Urea Nitrogen 24 mg/dl (7-18) Creatinine 0.90 mg/dl (0.52-1.04) Glomerular Filtration Rate Calc > 60.0 Random Glucose 113 mg/dl (75-110) Calcium Level 9.6 mg/dl (8.4-10.2) Total Bilirubin 0.4 mg/dl (0.2-1.3) Aspartate Amino Transf (AST/SGOT) 22 U/L (0-35) Alanine Aminotransferase (ALT/SGPT) 26 U/L (0-56) Alkaline Phosphatase 77 U/L (0-126) Total Protein 7.2 gm/dl (6.3-8.2) Albumin 4.0 g/dl (3.5-5.0) Troponin I < 0.012 ng/ml Chemistry Test 09/19/17 02:05 09/19/17 05:12 White Blood Count 10.3 k/uL (4.5-11.0) Red Blood Count 5.37 M/uL (4.17-5.56) Hemoglobin 15.0 g/dL (12.0-16.0) Hematocrit 44.4 % (34.0-47.0) Mean Corpuscular Volume 82.6 fL (80.0-96.0) Mean Corpuscular Hemoglobin 27.9 pg (26.0-33.0) Mean Corpuscular Hemoglobin Concent 33.7 g/dL (32.0-36.0) Red Cell Distribution Width 18.3 % (11.5-14.5) Platelet Count 285 K/uL (150-450) Mean Platelet Volume 6.7 fL (7.2-11.1) Neutrophils (%) (Auto) 73.0 % (39.4-72.5) Lymphocytes (%) (Auto) 15.9 % (17.6-49.6) Monocytes (%) (Auto) 8.8 % (4.1-12.4) Eosinophils (%) (Auto) 1.3 % (0.4-6.7) Basophils (%) (Auto) 1.0 % (0.3-1.4) Nucleated RBC Relative Count (auto) 0.0 /100WBC Neutrophils # (Auto) 7.5 K/uL (2.0-7.4) Lymphocytes # (Auto) 1.6 K/uL (1.3-3.6) Monocytes # (Auto) 0.9 K/uL (0.3-1.0) Eosinophils # (Auto) 0.1 K/uL (0.0-0.5) Basophils # (Auto) 0.1 K/uL (0.0-0.1) Nucleated RBC Absolute Count (auto) 0.00 K/uL Peripheral Blood Smear No Y/N Prothrombin Time 12.8 seconds (12.0-14.4) Prothromb Time International Ratio 0.97 Activated Partial Thromboplast Time 26 seconds (23-35) Glomerular Filtration Rate Calc > 60.0 Calcium Level 9.6 mg/dl (8.4-10.2) Total Bilirubin 0.4 mg/dl (0.2-1.3) Aspartate Amino Transf (AST/SGOT) 22 U/L (0-35) Alanine Aminotransferase (ALT/SGPT) 26 U/L (0-56) Alkaline Phosphatase 77 U/L (0-126) Total Protein 7.2 gm/dl (6.3-8.2) Albumin 4.0 g/dl (3.5-5.0) Troponin I < 0.012 ng/ml Coagulation Test 09/19/17 02:05 Prothrombin Time 12.8 seconds Prothromb Time International Ratio 0.97 Activated Partial Thromboplast Time 26 seconds EKG/Imaging EKG Interpretation 12 lead EKG: At 02:28 Rhythm: normal sinus rhythm, rate 91 [place]: normal QRS: normal ST segments: Nonspecific flattening, no ST elevation or depression noted 12 lead EKG: At 05:13 Rhythm: Normal sinus rhythm, rate 71 [place]: normal QRS: normal ST segments: Nonspecific changes, unchanged from previous Imaging HEAD W/O CONTRAST HISTORY: Weakness in left arm. COMPARISON: 09/12/2017 and studies dating to 01/15/2006. Comparison examinations include CT scans and brain MRs. TECHNIQUE: Axial images were obtained from the skull base to the vertex without contrast. Sagittal and coronal reformats were performed. One of the following dose optimization techniques was utilized in the performance of this exam: Automated exposure control; adjustment of the mA and/ or kV according to the patient's size; or use of an iterative reconstruction technique. Specific details can be referenced in the facility's radiology CT exam operational policy. CONTRAST: None. FINDINGS: Brain: No intracranial hemorrhage or edema. There is mild calcification of the internal carotid arteries. There is a stable 0.9 x 1.1 cm lesion of fat attenuation in the right posterior fossa CP angle, consistent with a benign lipoma. 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 Ventricles and sulci: Sulci are prominent, compatible with mild atrophy, normal for age. There is compensatory dilation of the ventricles. Osseous structures: Intact. There is mild hyperostosis frontalis interna. Sinuses and mastoids: There is minimal mucosal thickening of the ethmoid sinuses. There is a rightward nasal septal spur and slight rightward nasal septal spurring. Mastoids are clear. Orbits and soft tissues: Normal. IMPRESSION: 1. No acute intracranial abnormality. 2. 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 These findings were discussed by phone with TERESITA VERDUGO on 09/19/2017 2:42 AM. Report Dictated By: Kezia Daley at 09/19/2017 2:36 AM PORTABLE CHEST: Indication: Left arm weakness. Technique: A single frontal film was obtained. Comparison: 09/14/2017 Skeletal and soft tissue structures: Intact and unremarkable. Heart and mediastinum: Within normal limits. Lung zaragoza: Well-expanded. No focal opacities. No vascular congestion. Pleural spaces: Unremarkable. Impression: No acute process or significant change. Report Dictated By: Сергей Gallegos MD at 09/19/2017 2:45 AM BRAIN W/O CONTRAST HISTORY: Subjective left arm weakness tonight. COMPARISON: Head CT earlier same day and studies dating to 01/15/2006. Comparison studies include prior head CTs and brain MRs. TECHNIQUE: Multi-planar, multi-sequence brain MR was performed without contrast. CONTRAST: None. FINDINGS: Brain: There is no restricted diffusion to indicate acute or early subacute ischemia. There is no intracranial hemorrhage or edema. There is a stable right CP angle lipoma, unchanged since January 2006. Ventricles and sulci: Sulci are normal. The ventricles are normal in size and configuration. Vessels: The vascular flow voids are normal. Osseous structures: Intact. Sinuses and mastoids: There is minimal mucosal thickening of the ethmoid sinuses. Orbits and soft tissues: Normal. IMPRESSION: 1. No acute process or findings to account for patient's symptoms. 2. Stable right CP angle lipoma. Report Dictated By: Kezia Daley at 09/19/2017 4:25 AM ED Course/Re-evaluation Clinical Indication for ER IV: Hydration, IV Access ED Course Patient was admitted, stat CT scan was obtained. Labs obtained as noted above. CT scan was negative. Chest x-ray EKG and other labs obtained. Negative EKG and troponin. NIH stroke scale was done and she scored a zero. She had equal strength in her both right and left arms. Further evaluation and observation was done. We ended up getting an MRI without contrast of the brain. This was negative as well. Repeat troponin and EKG negative. Reevaluation shows no focal deficits and no changes. She is discharged home in good condition without any changes at this time. Decision to Disposition Date: September 19, 2017 Decision to Disposition Time: 05:57 Depart Departure Latest Vital Signs Vital Signs Date Time Temp Pulse Resp B/P (MAP) Pulse Ox O2 Delivery O2 Flow Rate FiO2 09/19/17 06:10 78 8 97 09/19/17 06:00 114/60 (78) 09/19/17 01:59 97.5 Room Air Impression: Primary Impression: Left arm weakness Condition: Improved Disposition: HOME OR SELF-CARE Referrals: ABDIEL CARDENAS DO (PCP) Patient Instructions: Weakness (ED) Additional Instructions: We did not find any signs of a stroke or heart attack tonight causing your problems. We recommend follow-up with your regular doctor. No change in medications at this time. Unable to tell if this is a side effect from the steroid medication or not at this time. TERESITA VERDUGO MD September 19, 2017 01:57
[2017-09-19 02:14] LABS: PLATELET COUNT, AUTOMATED 285 K/uL (150-450)
[2017-09-19 02:24] LABS: INR 0.97
--- NOTE | 2017-09-19 02:50 | RADIOLOGY IMAGING REPORT ---
FACILITY: [facility] - [place] PATIENT NAME: Dalia Layton : 1940 MR: [id number] V: [id number] EXAM DATE: ORDERING PHYSICIAN: TERESITA VERDUGO TECHNOLOGIST: Location: [facility] - [place] Patient: Dalia Layton : 1940 Visit/Account:[id number] Date of Sevice: 09/19/2017 PORTABLE CHEST: Indication: Left arm weakness. Technique: A single frontal film was obtained. Comparison: 09/14/2017 Skeletal and soft tissue structures: Intact and unremarkable. Heart and mediastinum: Within normal limits. Lung zaragoza: Well-expanded. No focal opacities. No vascular congestion. Pleural spaces: Unremarkable. Impression: No acute process or significant change. Report Dictated By: Сергей Gallegos MD at 09/19/2017 2:45 AM Report E-Signed By: Сергей Gallegos MD at 09/19/2017 2:46 AM WSN:[id number]
--- NOTE | 2017-09-19 02:50 | RADIOLOGY IMAGING REPORT ---
FACILITY: [facility] PATIENT NAME: Dalia Layton : 1940 MR: [id number] V: [id number] EXAM DATE: ORDERING PHYSICIAN: TERESITA VERDUGO TECHNOLOGIST: Location: [facility] - [place] Patient: Dalia Layton : 1940 Visit/Account:[id number] Date of Sevice: 09/19/2017 HEAD W/O CONTRAST HISTORY: Weakness in left arm. COMPARISON: 09/12/2017 and studies dating to 01/15/2006. Comparison examinations include CT scans and b rain MRs. TECHNIQUE: Axial images were obtained from the skull base to the vertex without contrast. Sagittal an d coronal reformats were performed. One of the following dose optimization techniques was utilized in the performance of this exam: Autom ated exposure control; adjustment of the mA and/or kV according to the patient's size; or use of an i terative reconstruction technique. Specific details can be referenced in the facility's radiology CT exam operational policy. CONTRAST: None. FINDINGS: Brain: No intracranial hemorrhage or edema. There is mild calcification of the internal carotid arter ies. There is a stable 0.9 x 1.1 cm lesion of fat attenuation in the right posterior fossa CP angle, consistent with a benign lipoma. 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 Ventricles and sulci: Sulci are prominent, compatible with mild atrophy, normal for age. There is com pensatory dilation of the ventricles. Osseous structures: Intact. There is mild hyperostosis frontalis interna. Sinuses and mastoids: There is minimal mucosal thickening of the ethmoid sinuses. There is a rightwar d nasal septal spur and slight rightward nasal septal spurring. Mastoids are clear. Orbits and soft tissues: Normal. IMPRESSION: 1. No acute intracranial abnormality. 2. 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 These findings were discussed by phone with TERESITA VERDUGO on 09/19/2017 2:42 AM. Report Dictated By: Kezia Daley at 09/19/2017 2:36 AM Report E-Signed By: Kezia Daley at 09/19/2017 2:45 AM WSN:[id number]
--- NOTE | 2017-09-19 03:15 | EKG ---
FACILITY: [facility] - [place] PATIENT NAME: CHANTEL VITAL : [id number] MR: [id number] V: [id number] EXAM DATE: ORDERING PHYSICIAN: TERESITA VERDUGO TECHNOLOGIST: GEORGE Test Reason : NEURO Blood Pressure : / mmHG Vent. Rate : 091 BPM Atrial Rate : 091 BPM P-R Int : 136 ms QRS Dur : 084 ms QT Int : 360 ms P-R-T Axes : 063 -11 053 degrees QTc Int : 442 ms Normal sinus rhythm Possible Left atrial enlargement Cannot rule out Inferior infarct , age undetermined T inversion consistent with septal ischemia vs normal variant When compared with ECG of 14-SEP-2017 11:36, Now with septal T inversion Confirmed by ANDREY APPIAH ([id number]) on 09/19/2017 3:02:01 PM Referred By: Confirmed By:ANDREY APPIAH
[2017-09-19] MEDS ORDERED: LORazepam 2 MG/ML VIAL IVP ONE (03:45)
--- NOTE | 2017-09-19 04:36 | RADIOLOGY IMAGING REPORT ---
FACILITY: [facility] PATIENT NAME: Dalia Layton : 1940 MR: [id number] V: [id number] EXAM DATE: ORDERING PHYSICIAN: TERESITA VERDUGO TECHNOLOGIST: Location: [facility] Patient: Dalia Layton : 1940 Visit/Account:[id number] Date of Sevice: 09/19/2017 BRAIN W/O CONTRAST HISTORY: Subjective left arm weakness tonight. COMPARISON: Head CT earlier same day and studies dating to 01/15/2006. Comparison studies include prio r head CTs and brain MRs. TECHNIQUE: Multi-planar, multi-sequence brain MR was performed without contrast. CONTRAST: None. FINDINGS: Brain: There is no restricted diffusion to indicate acute or early subacute ischemia. There is no int racranial hemorrhage or edema. There is a stable right CP angle lipoma, unchanged since January. Ventricles and sulci: Sulci are normal. The ventricles are normal in size and configuration. Vessels: The vascular flow voids are normal. Osseous structures: Intact. Sinuses and mastoids: There is minimal mucosal thickening of the ethmoid sinuses. Orbits and soft tissues: Normal. IMPRESSION: 1. No acute process or findings to account for patient's symptoms. 2. Stable right CP angle lipoma. Report Dictated By: Kezia Daley at 09/19/2017 4:25 AM Report E-Signed By: Kezia Daley at 09/19/2017 4:31 AM WSN:[id number]
--- NOTE | 2017-09-19 05:19 | EKG ---
FACILITY: [facility] PATIENT NAME: CHANTEL VITAL : [id number] MR: [id number] V: [id number] EXAM DATE: ORDERING PHYSICIAN: TERESITA VERDUGO TECHNOLOGIST: GEORGE Ruiz Reason : REPEAT EKG Blood Pressure : / mmHG Vent. Rate : 071 BPM Atrial Rate : 071 BPM P-R Int : 144 ms QRS Dur : 082 ms QT Int : 396 ms P-R-T Axes : 033 010 034 degrees QTc Int : 430 ms Sinus rhythm Possible Inferior infarct (cited on or before 19-SEP-2017) R wave progression consistent with old ant/sep [place] vs lead placement T inversion consistent with septal ischemia vs normal variant When compared with ECG of 19-SEP-2017 02:28, Unchanged Confirmed by ANDREY APPIAH ([id number]) on 09/19/2017 3:04:06 PM Referred By: Confirmed By:ANDREY APPIAH
[2017-09-19 06:00] VITALS: BP 114/60
== END 2017-09-19 06:22 | disposition home or self-care (01) ==
LOC: ER 02:23
DX: R53.1 Weakness (principal)
CPT/HCPCS: 36415; 70450; 70551; 71045; 84484; 85025; 85610; 85730; 93005; 96374; 99284; J2060; 82040; 82247; 82310; 82374; 82435; 82565; 82947; 84075; 84132; 84155; 84295; 84450; 84460; 84520

== ENCOUNTER → 2017-12-03 | Outpatient (CLI) | payer MEDICARE ==
[2015-10-18 12:51] VITALS: BMI 34.9
[~2017-12-03] MED LIST changes: +DICL100G39 TOP; +DOCU-442 PO; -LEVO50TA86; +LEVO50TA86 PO; +MIRT7.5T2 PO; +PANT20TA27 PO; +PSYL660P13 PO
--- NOTE | 2017-12-03 15:26 | RADIOLOGY IMAGING REPORT ---
FACILITY: [facility] PATIENT NAME: Dalia Layton : 1940 MR: [id number] V: [id number] EXAM DATE: ORDERING PHYSICIAN: JOSÉ GRANADOS TECHNOLOGIST: [place] [facility] [place]: Dalia Layton : 1940 Visit/Account:[id number] Date of Sevice: 12/03/2017 DEXA Scan Clinical history: Osteopenia. Comparison: DEXA scan from 07/02/2014. LUMBAR SPINE: The bone mineral density (BMD) measured from L1-L4 correlates with a Z-score of 0.7 and a T-score of -0.6 which is Normal as defined by the World Health Organization. The corresponding risk of fracture in the lumbar spine is 1-2 times increased compared with a young adult reference population. This v alue has increase by 6.1 % since the prior study. More than 5% change is considered significant. HIP: Bone mineral density (BMD) measured in the LEFT total hip region correlates with a Z-score 0.4 and a T-score of -1.1 which is osteopenia as defined by the World Health Organization. The corresponding r isk of fracture in the hip is 2-3 times increased compared to a young adult reference population. Thi s value has decrease by 5.2 % since the prior study. More than 5% change is considered significant. T score left femoral neck -1.8 Bone mineral density (BMD) measured in the Femoral Neck region measures 0.791 g/cm?. IMPRESSION: 1. Lumbar spine: Normal. There has been 6.1% increase in the bone mineral density since the previou s exam. 2. Left Total Hip: Osteopenia. There has been 5.2% decrease in the bone mineral density since the p revious exam. 3. Femoral Neck: Bone Mineral Density is 0.791 g/cm? The next DEXA scan of this patient should include the following sites: L1-L4 and the left hip. FRAX? WHO Fracture Risk Assessment Tool link: <http://www.shef.ac.uk/FRAX/tool.jsp?locationValue=9> PLEASE NOTE: 1) The World Health Organization defines low BMD as follows: T-score Normal > -1 Osteopenia < -1 and > -2.5 Osteoporosis < -2.5 without fractures Established osteoporosis < -2.5 with fractures 2) In general, you may wish to consider: Diagnosis Treatment Follow-up DEXA Normal BMD Prevention 2-3 years Osteopenia Prevention/therapy 1-2 years Osteoporosis Therapy Yearly 3) Fracture risk estimated from the T-score is more accurate for vertebral fractures (often spontane ous) than for hip fractures. Report Dictated By: Khadijah Ponce MD at 12/03/2017 3:21 PM Report E-Signed By: Khadijah Ponce MD at 12/03/2017 3:23 PM WSN:[id number]
--- NOTE | 2017-12-04 08:23 | RADIOLOGY IMAGING REPORT ---
FACILITY: [facility] PATIENT NAME: CHANTEL VITAL : [id number] MR: [id number] V: [id number] EXAM DATE: [id number] ORDERING PHYSICIAN: JOSÉ GRANADOS TECHNOLOGIST: Lauren Del Valle PROCEDURE:BILATERAL DIGITAL SCREENING MAMMOGRAM WITH CAD ASSISTED INTERPRETATION & 3D TOMOSYNTHESIS COMPARISON:Prior mammograms 05/13/15, 03/10/14, 02/26/13, 12/21/11. INDICATIONS:Screening FINDINGS: A small amount of fibroglandular tissue is seen throughout the breasts. The parenchymal pattern has remained stable allowing for difference in mammographic technique & patient positioning. There is no evidence of malignant appearing mass, malignant appearing calcifications or other secondary sign of malignancy in either breast. DIAGNOSTIC CATEGORY 1--NEGATIVE. RECOMMENDATIONS: ROUTINE MAMMOGRAM AND CLINICAL EVALUATION. IMPRESSION: BIRADS 1: Negative. No significant abnormality is seen. Dictated by: Khadijah Ponce M.D. on 12/03/2017 at 16:18 Transcribed by: ADITHYA on 12/04/2017 at 7:53 Approved by: Khadijah Ponce M.D. on 12/04/2017 at 8:22 [facility]
== END ==
LOC: MAMO 02:01
PROVIDERS: ATTEND Family Medicine
DX: Z12.31 Encounter for screening mammogram for malignant neoplasm of breast (principal); M81.0 Age-related osteoporosis without current pathological fracture; Z78.0 Asymptomatic menopausal state
CPT/HCPCS: 77063; 77067; 77080